=== PATIENT | female | born 1945 | race Caucasian/White ===

== ENCOUNTER 2018-01-21 16:18 | Emergency (ER) | payer OTHER, BC ==
[2018-01-21 16:34] VITALS: BP 117/92; PULSE 106; TEMP 98; BMI 30.9
[2018-01-21] MEDS ORDERED: IBUPROFEN 600 MG TABLET (FP) PO ONE ×2 (16:37→16:41)
--- NOTE | 2018-01-21 16:42 | PDOC ---
History of Present Illness <Neisha Sandy - Last Filed: 01/21/18 17:43> - General History Source: Patient, Old Records Exam Limitations: No Limitations - History of Present Illness Initial Comments: 01/21/18 16:43 The patient is a 72 year old female with a past medical history of hypertension (81 mg) and breast cancer surgery who presents to the emergency department today with left ankle pain status post mechanical fall yesterday. The patient reports that she missed a step and subsequently fell injuring her left ankle. She describes her pain as constant, concentrated in the lateral aspect of her left foot, worsened when walking, and mildly alleviated when resting and elevated. She denies any head trauma, loss of consciousness, or other injuries. She denies any cough, chest pain, or shortness of breath. <Say Xavier - Last Filed: 01/21/18 17:45> - General Chief Complaint: Injury Stated Complaint: LEFT ANKLE PAIN S/P WITNESSED FALL Time Seen by Provider: 01/21/18 16:19 Past History - Past Medical History Cancer: Yes (Left BREAST s/p XRT and chemo (completed March 2014)) COPD: No HTN: Yes (on lisinopril and bystolic) Hypercholesterolemia: Yes - Suicide/Smoking/Psychosocial Hx Smoking History: Never smoked Hx Alcohol Use: Yes (occasional wine.) Drug/Substance Use Hx: No Substance Use Type: Alcohol <Neisha Sandy - Last Filed: 01/21/18 17:43> <Say Xavier - Last Filed: 01/21/18 17:45> - Past Medical History Allergies/Adverse Reactions: Allergies Allergy/AdvReac Type Severity Reaction Status Date / Time penicillin G Allergy Intermediate whelts Verified 01/21/18 16:19 Sulfa (Sulfonamide Allergy Intermediate yeast Verified 01/21/18 16:19 Antibiotics) infection Home Medications: Ambulatory Orders Aspirin [ASA -] 81 mg PO DAILY 03/09/15 Tamoxifen Citrate 20 mg PO DAILY tablet 09/07/15 Review of Systems - Review of Systems Able to Perform ROS?: Yes Comments:: 01/21/18 16:43 GENERAL/CONSTITUTIONAL: No: fever, chills, weakness, loss of appetite. HEAD, EYES, EARS, NOSE AND THROAT: No: change in vision, ear pain, discharge, sore throat, throat swelling. CARDIOVASCULAR: No: chest pain, lightheadedness, palpitations, syncope RESPIRATORY: No: cough, shortness of breath, wheezing, hemoptysis, stridor. GASTROINTESTINAL: No: nausea, vomiting, abdominal cramping, diarrhea, rectal bleeding, constipation. GENITOURINARY: No: dysuria, hematuria, frequency, urgency, flank pain. MUSCULOSKELETAL: (+) Left ankle pain No: back pain, neck pain, muscle swelling or pain SKIN: No: lesions, pallor, rash or easy bruising. NEUROLOGIC: No: headache, vertigo, paresthesias, weakness ENDOCRINE: No: unexplained weight gain or loss HEMATOLOGIC/LYMPHATIC: No: anemia, easy bleeding, swelling nodes <Say Xavier - Last Filed: 01/21/18 17:45> *Physical Exam - Vital Signs Last Vital Signs Temp Pulse Resp BP Pulse Ox 98 F 106 H 18 117/92 97 01/21/18 16:19 01/21/18 16:19 01/21/18 16:19 01/21/18 16:19 01/21/18 16:19 <Neisha Sandy - Last Filed: 01/21/18 17:43> - Vital Signs Last Vital Signs Temp Pulse Resp BP Pulse Ox 98 F 106 H 18 117/92 97 01/21/18 16:19 01/21/18 16:19 01/21/18 16:19 01/21/18 16:19 01/21/18 16:19 - Physical Exam Comments: 01/21/18 16:44 GENERAL: The patient is in no acute distress. HEAD: Normal with no signs of trauma. EYES: PERRLA, EOMI, sclera anicteric, conjunctiva clear. ENT: Ears normal, nares patent, oropharynx clear without exudates. Moist mucous membranes. NECK: Normal range of motion, supple without lymphadenopathy, JVD, or masses. LUNGS: Breath sounds equal, clear to auscultation bilaterally. No wheezes, and no crackles. HEART:Regular rate and rhythm, normal S1 and S2 without murmur, rub or gallop. ABDOMEN: Soft, nontender, normoactive bowel sounds. No guarding, no rebound. EXTREMITIES: Normal range of motion, no edema. No clubbing or cyanosis. No erythema, or tenderness. NEUROLOGICAL: Cranial nerves II through XII grossly intact. Normal speech. No focal neurological deficits. MUSCULOSKELETAL: Back nontender to palpation, no CVA tenderness SKIN: Warm, Dry, normal turgor, no rashes or lesions noted. <Say Xavier - Last Filed: 01/21/18 17:45> ED Treatment Course - Medications Given in the ED: ED Medications Discontinued Medications Generic Name Dose Route Start Last Admin Trade Name Martir PRN Reason Stop Dose Admin Ibuprofen 600 mg 01/21/18 16:37 01/21/18 16:42 Motrin - PO 01/21/18 16:38 600 mg ONCE ONE Administration <Say Xavier - Last Filed: 01/21/18 17:45> Medical Decision Making - Medical Decision Making 01/21/18 16:38 Ms. Escalante is a 72 yo f who presents to the ER with a complaint of left ankle pain S/p mechanical fall down stair, she missed a stair last night PT states her pain has been severe since then She has difficulty bearing weight She has taken tylenol for pain On examination: No deformities. (+) swelling lateral malleolus failt bruising noted to lateral malleolus (+) tenderness of the lateral malleolus No tenderness to palpation of the DIPs, PIPs, MTPs, phalanges, metatarsals, tarsals, lateral or medial malleolus, Achilles, tibia, fibula, knee, hip bilaterally. Full range of motion of the lower extremities intact. Patient with difficulty bearing weight. Ambulating with a limp. Dorsalis pedis and posterior tibialis pulses 2+ and equal bilaterally. Capillary refill less than 2 seconds bilaterally. Neurologic: The patient is awake, alert, oriented x3. Gross motor and sensory exam is found to be intact. Sensation of distal lower extremities intact. 5/5 muscle strength of the lower extremities. DTRs, Achilles, patellar 1-2+ and equal bilaterally. Will do x ray Will give Motrin for pain Will re assess <Neisha Sandy - Last Filed: 01/21/18 17:43> - Medical Decision Making 01/21/18 17:45 Lesvia Stephens Name: ALEJANDRA ESCALANTE DEPARTMENT OF RADIOLOGY Phys: Neisha Sandy MD : [id number] Age: 72 Sex: F [facility] Acct: [id number] Loc: [address] Exam Date: 01/21/18 Status: REG [place] [id number] Unit Number: [id number] EXAM#: TYPE/EXAM: RESULT: [id number] RAD/ANKLE FOOT-LEFT* HISTORY PROVIDED: Ankle injury AP, oblique and lateral projections of the left foot and ankle reveals no evidence of fracture, dislocation or acute bone or joint abnormalities. Mild degenerative changes are present. There is soft tissue swelling seen about the lateral malleolus. A small part is identified along the plantar surface of the calcaneus. IMPRESSION: Mild degenerative arthritis with no fracture or acute bone or joint abnormalities. Reported By: Thai Mart MD 01/21/181741 Neisha Sandy Technologist: Rolando Shook Transcribed Date/Time: 01/21/181741 Hot Iron Worker: Thai Mart Printed Date/Time: By: Signed by: Thai Mart Signed on: 21-Jan-2018 17:42 <Say Xavier - Last Filed: 01/21/18 17:45> *DC/Admit/Observation/Transfer - Discharge Dispostion Decision to Admit order: No <Neisha Sandy - Last Filed: 01/21/18 17:43> - Attestations Scribe Attestion: 01/21/18 16:44 Documentation prepared by Say Xavier, acting as emergency medical dispatcher for Neisha Sandy MD. <Say Xavier - Last Filed: 01/21/18 17:45> Diagnosis at time of Disposition: Left ankle sprain Qualifiers: Encounter type: initial encounter Involved ligament of ankle: unspecified ligament Qualified Code(s): S93.402A - Sprain of unspecified ligament of left ankle, initial encounter - Discharge Dispostion Disposition: HOME Condition at time of disposition: Stable - Referrals Referrals: Alfonso Hsu MD [Staff Physician] - - Patient Instructions Printed Discharge Instructions: DI for Ankle Sprain Additional Instructions: Ms Escalante Today you were seen for ankle pain and the X-ray demonstrated no signs of fracture (broken bone), for that reason it is more likely a sprain based on your symptoms and the appearance and exam findings of your ankle. Please be sure to rest, ice and elevate it and to avoid bearing weight until feeling better. You may take the medications weve provided you as directed but please be sure to read the instructions provided by the pharmacist to make sure you take the medications correctly. You should not participate in any sports for at least 1 week or until you are feeling better. Follow up with your primary cares office, or the referral weve provided you within 24 hours to inform them of todays visit and to see if they would like to/ need to see you. If you develop any new or worsening symptoms, or any fevers that cant be controlled with Tylenol or Motrin go directly to the emergency room.
== END 2018-01-21 17:53 | disposition home or self-care (01) ==
LOC: FER 16:18
DX: S93.402A Sprain of unspecified ligament of left ankle, initial encounter (principal); W18.39XA Other fall on same level, initial encounter; Y93.89 Activity, other specified; Y92.9 Unspecified place or not applicable; I10 Essential (primary) hypertension; Z85.3 Personal history of malignant neoplasm of breast
CPT/HCPCS: 73610-TC-LT-FY; 73630-TC-LT; 99282-25

== ENCOUNTER 2021-12-27 07:31 | Inpatient (IN) | payer OTHER ==
[2021-12-27] MEDS ORDERED: LACTATED RINGERS SOLUTION 1000 ML INFUS.BAG IV ONE (08:25)
[2021-12-27 11:18] LABS: HEMATOCRIT 32.7 % (32.4-45.2); HEMOGLOBIN 10.9 GM/dL (10.7-15.3); MCH 31.1 pg (25.7-33.7); MCHC 33.2 g/dl (32.0-36.0); MEAN CELL VOLUME 93.7 fl (80-96); PLATELET COUNT 157 10^3/uL (134-434); RBC 3.49 M/mm3 (3.60-5.2); RDW 15.4 % (11.6-15.6)
[2021-12-27 11:20] LABS: WHITE BLOOD COUNT 34.2 K/mm3 (4.0-10.0)
[2021-12-27 11:25] LABS: INR 1.04 (0.83-1.09)
[2021-12-27 11:40] LABS: CHLORIDE 98 mmol/L (98-107); SODIUM 135 mmol/L (136-145)
[2021-12-27 11:42] LABS: CALCIUM 9.4 mg/dL (8.5-10.1); GLUCOSE,RANDOM 201 mg/dL (74-106)
[2021-12-27 11:43] LABS: ALBUMIN 2.8 g/dl (3.4-5.0); ANION GAP 13 MMOL/L (8-16); CO2 24 mmol/L (21-32)
[2021-12-27 11:46] LABS: CREATININE 1.1 mg/dL (0.55-1.3); SGOT/AST 33 U/L (15-37); SGPT/ALT 44 U/L (13-61)
[2021-12-27 11:47] LABS: BILIRUBIN,TOTAL 0.7 mg/dL (0.2-1)
[2021-12-27 11:49] LABS: ALK PHOS 124 U/L (45-117)
[2021-12-27 12:31] LABS: ANISOCYTOSIS 0; HELMET CELLS 0; HOWELL-JOLLY BODIES 0; MACROCYTOSIS 0; OVALOCYTE 0; ROULEAU 0; SICKELED CELLS 0; TARGET CELLS 0; TEAR DROP CELLS 0; TOXIC GRANULATION 0
[2021-12-27 15:27] LABS: URINE APPEARANCE CLEAR; URINE BILIRUBIN NEGATIVE (NEGATIVE); URINE COLOR YELLOW; URINE GLUCOSE (UA) 2+ (NEGATIVE); URINE KETONE NEGATIVE (NEGATIVE); URINE LEUK ESTERASE NEGATIVE (NEGATIVE); URINE NITRITE NEGATIVE (NEGATIVE); URINE PROTEIN TRACE (NEGATIVE); URINE UROBILINOGEN 0.2 mg/dL (0.2-1.0)
[2021-12-27] MEDS ORDERED: SODIUM CHLORIDE 1,000 ML IV SCH ×2 (16:45→16:59)
[2021-12-28 07:32] LABS: HEMATOCRIT 27.8 % (32.4-45.2); HEMOGLOBIN 9.3 GM/dL (10.7-15.3); MCH 31.6 pg (25.7-33.7); MCHC 33.4 g/dl (32.0-36.0); MEAN CELL VOLUME 94.7 fl (80-96); MEAN PLT VOLUME 10.7 fl (7.5-11.1); PLATELET COUNT 129 10^3/uL (134-434); RBC 2.94 M/mm3 (3.60-5.2); RDW 15.5 % (11.6-15.6); WHITE BLOOD COUNT 17.5 K/mm3 (4.0-10.0)
[2021-12-28 07:45] LABS: ALBUMIN 2.3 g/dl (3.4-5.0); BLOOD UREA NITROGEN 42.6 mg/dL (7-18); CALCIUM 8.3 mg/dL (8.5-10.1); MAGNESIUM 2.1 mg/dL (1.8-2.4)
[2021-12-28 07:48] LABS: CREATININE 0.7 mg/dL (0.55-1.3); PHOSPHOROUS 2.5 mg/dL (2.5-4.9)
[2021-12-28 07:49] LABS: BILIRUBIN,TOTAL 0.7 mg/dL (0.2-1); TOT PROT 4.4 g/dl (6.4-8.2)
[2021-12-28] MEDS ORDERED: ACETAMINOPHEN 325 MG TABLET (FP) PO PRN (08:21)
[2021-12-28 08:49] LABS: ANISOCYTOSIS 1+; MACROCYTOSIS 1+
[2021-12-28] MEDS: FAMOTIDINE 20 MG TABLET PO SCH (09:52)
[2021-12-28] MEDS: ENOXAPARIN NA (PORCINE) 40 MG/0.4 ML DISP.SYRIN SQ SCH (09:52)
[2021-12-28] MEDS: LYTES/YERBA SANTA 60 ML SPRAY MM SCH ×2 (12:53→18:46)
[2021-12-28] MEDS ORDERED: SODIUM CHLORIDE 1,000 ML IV SCH (16:45)
[2021-12-28] MEDS: AMINO ACIDS/PROTEIN HYDROLYS 30 ML LIQUID.PKT PO SCH (18:46)
[2021-12-28] MEDS ORDERED: LORazepam 0.5 MG TABLET PO ONE (18:58)
[2021-12-29] MEDS: LORazepam 0.5 MG TABLET PO PRN ×2 (00:25→12:09)
[2021-12-29] MEDS: LYTES/YERBA SANTA 60 ML SPRAY MM SCH ×4 (06:15→17:52)
[2021-12-29 06:51] LABS: HEMATOCRIT 29.6 % (32.4-45.2); MCH 31.5 pg (25.7-33.7); MCHC 33.7 g/dl (32.0-36.0); MEAN CELL VOLUME 93.4 fl (80-96); MEAN PLT VOLUME 10.6 fl (7.5-11.1); PLATELET COUNT 116 10^3/uL (134-434); RBC 3.17 M/mm3 (3.60-5.2); RDW 15.7 % (11.6-15.6)
[2021-12-29 07:12] LABS: BLOOD UREA NITROGEN 32.8 mg/dL (7-18); CALCIUM 8.2 mg/dL (8.5-10.1)
[2021-12-29 07:15] LABS: CREATININE 0.6 mg/dL (0.55-1.3)
[2021-12-29 08:50] LABS: ANISOCYTOSIS 1+; MACROCYTOSIS 0; PLATELET ESTIMATE DECREASED
[2021-12-29] MEDS: AMINO ACIDS/PROTEIN HYDROLYS 30 ML LIQUID.PKT PO SCH ×2 (09:08→17:42)
[2021-12-29] MEDS: ENOXAPARIN NA (PORCINE) 40 MG/0.4 ML DISP.SYRIN SQ SCH (09:19)
[2021-12-29] MEDS: FAMOTIDINE 20 MG TABLET PO SCH (09:19)
[2021-12-29] MEDS ORDERED: NAPH,MB-DB/K PH,MBDB POWDER PACKET PO ONE (09:51)
[2021-12-29] MEDS ORDERED: DIGOXIN 0.5 MG/2 ML AMPUL IVPUSH ONE ×2 (12:44→19:00)
[2021-12-29] MEDS ORDERED: LORazepam 2 MG/ML SDV VIAL IVPB ONE (14:38)
[2021-12-29] MEDS ORDERED: DRONABINOL 5 MG CAPSULE PO SCH (14:45)
[2021-12-29] MEDS: POLYETHYLENE GLYCOL (HEALTHYLAX) 3350 17 GM PACKET PO SCH (17:41)
[2021-12-29] MEDS: SODIUM CHLORIDE 1,000 ML IV SCH (17:42)
[2021-12-29] MEDS ORDERED: LORazepam 2 MG/ML SDV VIAL IVPUSH ONE (19:11)
[2021-12-29] MEDS: SENNOSIDES 8.6MG TABLET (FP) PO SCH ×2 (21:51→21:55)
[2021-12-29] MEDS ORDERED: MIRTAZAPINE 15 MG TABLET (FP) PO ONE (22:00)
[2021-12-30] MEDS: LORazepam 2 MG/ML SDV VIAL IVPUSH PRN ×2 (00:11→06:10)
[2021-12-30] MEDS: LYTES/YERBA SANTA 60 ML SPRAY MM SCH ×3 (00:41→18:35)
[2021-12-30] MEDS ORDERED: HALOPERIDOL LACTATE 5 MG/ML IM ONE (02:25)
[2021-12-30 07:23] LABS: HEMATOCRIT 28.1 % (32.4-45.2); HEMOGLOBIN 9.3 GM/dL (10.7-15.3); MCH 31.4 pg (25.7-33.7); MEAN PLT VOLUME 10.7 fl (7.5-11.1); PLATELET COUNT 104 10^3/uL (134-434); RBC 2.95 M/mm3 (3.60-5.2); RDW 15.4 % (11.6-15.6); WHITE BLOOD COUNT 11.2 K/mm3 (4.0-10.0)
[2021-12-30 07:51] LABS: ALBUMIN 2.3 g/dl (3.4-5.0); BLOOD UREA NITROGEN 25.8 mg/dL (7-18); CALCIUM 8.1 mg/dL (8.5-10.1); MAGNESIUM 2.2 mg/dL (1.8-2.4)
[2021-12-30 07:54] LABS: CREATININE 0.5 mg/dL (0.55-1.3); PHOSPHOROUS 2.3 mg/dL (2.5-4.9)
[2021-12-30 07:56] LABS: BILIRUBIN,TOTAL 0.7 mg/dL (0.2-1); TOT PROT 4.4 g/dl (6.4-8.2)
[2021-12-30 09:06] LABS: ANISOCYTOSIS 0; MACROCYTOSIS 0
[2021-12-30] MEDS ORDERED: DIGOXIN 0.25 MG TABLET PO SCH (10:00)
[2021-12-30] MEDS: ENOXAPARIN NA (PORCINE) 40 MG/0.4 ML DISP.SYRIN SQ SCH (11:30)
[2021-12-30] MEDS: FAMOTIDINE 20 MG TABLET PO SCH (11:31)
[2021-12-30] MEDS: POLYETHYLENE GLYCOL (HEALTHYLAX) 3350 17 GM PACKET PO SCH (11:31)
[2021-12-30] MEDS: DIGOXIN 0.5 MG/2 ML AMPUL IVPUSH SCH ×2 (11:31→11:41)
[2021-12-30] MEDS: AMINO ACIDS/PROTEIN HYDROLYS 30 ML LIQUID.PKT PO SCH ×2 (11:41→17:25)
[2021-12-30] MEDS ORDERED: LIDOCAINE VISCOUS 2% ORAL/TOP 15 ML UNIT-DOSE CUP MM PRN (14:27)
[2021-12-30] MEDS ORDERED: DEXAMETHASONE SOD PHOSPHATE 10 MG/1 ML VIAL IVPUSH ONE (14:45)
[2021-12-30] MEDS ORDERED: POTASSIUM PHOSPHATE 10 MM in SODIUM CHLORIDE 250 ML IVPB ONE (16:43)
[2021-12-30] MEDS: DRONABINOL 2.5 MG CAPSULE PO SCH (17:02)
[2021-12-30] MEDS: SODIUM CHLORIDE 1,000 ML IV SCH (17:23)
[2021-12-30] MEDS ORDERED: MIRTAZAPINE 15 MG TABLET (FP) PO ONE (18:00)
[2021-12-30] MEDS: DEXAMETHASONE SOD PHOSPHATE 4 MG/1 ML VIAL IVPUSH SCH ×2 (21:00→21:44)
[2021-12-30] MEDS: SENNOSIDES 8.6MG TABLET (FP) PO SCH (21:45)
[2021-12-30] MEDS ORDERED: MIRTAZAPINE 15 MG TABLET (FP) PO SCH (22:00)
[2021-12-31] MEDS: LYTES/YERBA SANTA 60 ML SPRAY MM SCH ×4 (00:58→21:19)
[2021-12-31] MEDS: ACETAMINOPHEN 1000 MG/100 ML BAG IVPB PRN ×2 (02:58→16:20)
[2021-12-31] MEDS: DEXAMETHASONE SOD PHOSPHATE 4 MG/1 ML VIAL IVPUSH SCH ×4 (03:29→21:19)
[2021-12-31] MEDS ORDERED: fentaNYL 25mcg/hr PATCH.TD72 TD SCH (03:30)
[2021-12-31 07:39] LABS: HEMOGLOBIN 9.7 GM/dL (10.7-15.3); MCH 31.8 pg (25.7-33.7); MCHC 33.4 g/dl (32.0-36.0); MEAN CELL VOLUME 95.3 fl (80-96); MEAN PLT VOLUME 10.5 fl (7.5-11.1); PLATELET COUNT 112 10^3/uL (134-434); RBC 3.04 M/mm3 (3.60-5.2); RDW 15.8 % (11.6-15.6); WHITE BLOOD COUNT 7.8 K/mm3 (4.0-10.0)
[2021-12-31 07:55] LABS: CALCIUM 8.2 mg/dL (8.5-10.1)
[2021-12-31 07:56] LABS: ALBUMIN 2.4 g/dl (3.4-5.0); BLOOD UREA NITROGEN 36.2 mg/dL (7-18); MAGNESIUM 2.2 mg/dL (1.8-2.4)
[2021-12-31 07:59] LABS: CREATININE 0.6 mg/dL (0.55-1.3); PHOSPHOROUS 3.4 mg/dL (2.5-4.9)
[2021-12-31 08:00] LABS: BILIRUBIN,TOTAL 0.8 mg/dL (0.2-1)
[2021-12-31 08:03] LABS: TOT PROT 4.7 g/dl (6.4-8.2)
[2021-12-31 09:10] LABS: ANISOCYTOSIS 1+; MACROCYTOSIS 1+; PLATELET ESTIMATE DECREASED
[2021-12-31] MEDS: DOCUSATE SODIUM 100 MG CAPSULE (FP) PO SCH (10:00)
[2021-12-31] MEDS ORDERED: dilTIAZem HCL 50 MG/10 ML - 10 ML VIAL IVPUSH SCH (10:00)
[2021-12-31] MEDS: DIGOXIN 0.5 MG/2 ML AMPUL IVPUSH SCH (10:00)
[2021-12-31] MEDS: AMINO ACIDS/PROTEIN HYDROLYS 30 ML LIQUID.PKT PO SCH ×2 (10:00→21:19)
[2021-12-31] MEDS: FAMOTIDINE 20 MG TABLET PO SCH (10:03)
[2021-12-31] MEDS: DRONABINOL 2.5 MG CAPSULE PO SCH (10:04)
[2021-12-31] MEDS: POLYETHYLENE GLYCOL (HEALTHYLAX) 3350 17 GM PACKET PO SCH (10:10)
[2021-12-31] MEDS ORDERED: LORazepam 2 MG/ML SDV VIAL IVPUSH ONE (10:20)
[2021-12-31] MEDS: HALOPERIDOL LACTATE 5 MG/ML IM PRN ×2 (14:08→21:17)
[2021-12-31] MEDS: SODIUM CHLORIDE 1,000 ML IV SCH (19:00)
[2021-12-31] MEDS: SENNOSIDES 8.6MG TABLET (FP) PO SCH (21:19)
[2022-01-01] MEDS: LYTES/YERBA SANTA 60 ML SPRAY MM SCH ×4 (02:06→17:49)
[2022-01-01] MEDS: DEXAMETHASONE SOD PHOSPHATE 4 MG/1 ML VIAL IVPUSH SCH ×4 (02:06→21:07)
[2022-01-01 07:27] LABS: BASO % 0.2 % (0-2.0); HEMATOCRIT 27.6 % (32.4-45.2); HEMOGLOBIN 9.1 GM/dL (10.7-15.3); LYMPH % 3.5 % (8-40); MCH 31.3 pg (25.7-33.7); MEAN PLT VOLUME 10.8 fl (7.5-11.1); MONO % 3.6 % (3.8-10.2); NEUT % 92.7 % (42.8-82.8); PLATELET COUNT 111 10^3/uL (134-434); RBC 2.91 M/mm3 (3.60-5.2); RDW 15.8 % (11.6-15.6); WHITE BLOOD COUNT 15.6 K/mm3 (4.0-10.0)
[2022-01-01 07:55] LABS: CALCIUM 8.5 mg/dL (8.5-10.1)
[2022-01-01 07:56] LABS: ALBUMIN 2.2 g/dl (3.4-5.0); BLOOD UREA NITROGEN 48.1 mg/dL (7-18)
[2022-01-01 07:59] LABS: CREATININE 0.6 mg/dL (0.55-1.3)
[2022-01-01 08:01] LABS: BILIRUBIN,TOTAL 0.6 mg/dL (0.2-1); TOT PROT 4.5 g/dl (6.4-8.2)
[2022-01-01] MEDS: METOPROLOL TARTRATE 5 MG/5 ML VIAL IVPUSH PRN (08:06)
[2022-01-01] MEDS ORDERED: morphine SULFATE 4 MG/ML VIAL IVPUSH PRN ×2 (08:34→08:45)
[2022-01-01] MEDS ORDERED: morphine SULFATE 4 MG/ML VIAL ONE (08:42)
[2022-01-01] MEDS: AMINO ACIDS/PROTEIN HYDROLYS 30 ML LIQUID.PKT PO SCH ×2 (08:47→17:49)
[2022-01-01 09:37] LABS: ANISOCYTOSIS 1+; MACROCYTOSIS 0; PLATELET ESTIMATE DECREASED
[2022-01-01] MEDS: FAMOTIDINE 20 MG TABLET PO SCH (10:21)
[2022-01-01] MEDS: DRONABINOL 2.5 MG CAPSULE PO SCH (10:23)
[2022-01-01] MEDS: DIGOXIN 0.5 MG/2 ML AMPUL IVPUSH SCH (10:23)
[2022-01-01] MEDS: DOCUSATE SODIUM 100 MG CAPSULE (FP) PO SCH (10:25)
[2022-01-01] MEDS: POLYETHYLENE GLYCOL (HEALTHYLAX) 3350 17 GM PACKET PO SCH (10:51)
[2022-01-01] MEDS: LORazepam 2 MG/ML SDV VIAL IVPUSH PRN (10:52)
[2022-01-01] MEDS: AMINO ACIDS 4.25%/D5W 1,000 ML IV SCH ×2 (11:10→21:06)
[2022-01-01] MEDS: SODIUM CHLORIDE 1,000 ML IV SCH ×2 (12:04→16:30)
[2022-01-01] MEDS: morphine SULFATE 4 MG/ML VIAL IVPUSH PRN ×3 (12:06→21:29)
[2022-01-01] MEDS: ACETAMINOPHEN 1000 MG/100 ML BAG IVPB PRN ×2 (12:53→21:08)
[2022-01-01] MEDS: LIDOCAINE VISCOUS 2% ORAL/TOP 15 ML UNIT-DOSE CUP MM SCH ×2 (13:00→17:51)
[2022-01-01] MEDS: SENNOSIDES 8.6MG TABLET (FP) PO SCH (21:07)
[2022-01-02] MEDS: LIDOCAINE VISCOUS 2% ORAL/TOP 15 ML UNIT-DOSE CUP MM SCH ×3 (00:33→13:24)
[2022-01-02] MEDS: LYTES/YERBA SANTA 60 ML SPRAY MM SCH ×3 (00:34→16:52)
[2022-01-02] MEDS: morphine SULFATE 4 MG/ML VIAL IVPUSH PRN ×2 (01:38→06:42)
[2022-01-02] MEDS: METOPROLOL TARTRATE 5 MG/5 ML VIAL IVPUSH PRN (02:43)
[2022-01-02] MEDS: DEXAMETHASONE SOD PHOSPHATE 4 MG/1 ML VIAL IVPUSH SCH ×3 (02:47→18:41)
[2022-01-02] MEDS: LORazepam 2 MG/ML SDV VIAL IVPUSH PRN ×3 (07:45→18:44)
[2022-01-02] MEDS: HALOPERIDOL LACTATE 5 MG/ML IM PRN (08:28)
[2022-01-02] MEDS: DIGOXIN 0.5 MG/2 ML AMPUL IVPUSH SCH (10:24)
[2022-01-02] MEDS: AMINO ACIDS/PROTEIN HYDROLYS 30 ML LIQUID.PKT PO SCH (10:32)
[2022-01-02] MEDS: DOCUSATE SODIUM 100 MG CAPSULE (FP) PO SCH (10:33)
[2022-01-02] MEDS: DRONABINOL 2.5 MG CAPSULE PO SCH (10:33)
[2022-01-02] MEDS: POLYETHYLENE GLYCOL (HEALTHYLAX) 3350 17 GM PACKET PO SCH (10:33)
[2022-01-02] MEDS: FAMOTIDINE 20 MG TABLET PO SCH (10:33)
[2022-01-02 10:50] VITALS: BP 157/89; TEMP 98.6
[2022-01-02] MEDS: AMINO ACIDS 4.25%/D5W 1,000 ML IV SCH (11:56)
[2022-01-02] MEDS: MORPHINE SULFATE/0.9% NACL/PF 100 MG/100 ML BAG IVPB SCH (13:58)
[2022-01-02] MEDS ORDERED: morphine SULFATE 4 MG/ML VIAL IVPUSH ONE (14:58)
[2022-01-02] MEDS ORDERED: HALOPERIDOL LACTATE 5 MG/ML IM PRN (14:59)
[2022-01-03] MEDS: LIDOCAINE VISCOUS 2% ORAL/TOP 15 ML UNIT-DOSE CUP MM SCH (00:10)
[2022-01-03 02:49] VITALS: PULSE 135
[2022-01-03] MEDS: MORPHINE SULFATE/0.9% NACL/PF 100 MG/100 ML BAG IVPB SCH (03:22)
[2022-01-03] MEDS ORDERED: FENTANYL PATCH WASTE TD PRN (03:29)
[2022-01-03] MEDS: LYTES/YERBA SANTA 60 ML SPRAY MM SCH ×2 (06:51)
== END 2022-01-03 07:13 | disposition expired | DRG 54 ==
LOC: JER 07:31 → JERBED 15:10 → J2W 18:30
PROVIDERS: ADMIT Internal Medicine
DX: C79.31 Secondary malignant neoplasm of brain (principal); J96.00 Acute respiratory failure, unspecified whether with hypoxia or hypercapnia; G93.41 Metabolic encephalopathy; C78.7 Secondary malignant neoplasm of liver and intrahepatic bile duct; C79.51 Secondary malignant neoplasm of bone; I48.92 Unspecified atrial flutter; I24.8 Other forms of acute ischemic heart disease; I95.1 Orthostatic hypotension; I10 Essential (primary) hypertension; I48.91 Unspecified atrial fibrillation; D72.829 Elevated white blood cell count, unspecified; T45.1X5A Adverse effect of antineoplastic and immunosuppressive drugs, initial encounter; Y92.89 Other specified places as the place of occurrence of the external cause; D69.6 Thrombocytopenia, unspecified; C50.912 Malignant neoplasm of unspecified site of left female breast; R62.7 Adult failure to thrive
CPT/HCPCS: 36415; 70450-TC; 70551-TC; 71045-TC-FY; 72125-TC; 72170-TC-FY; 80048; 80053; 81003; 82550; 83735; 84100; 84439; 84443; 84484; 85025; 85610; 85730; 86850; 86900; 86901; 87040; 87086; 93005; 93010; 93306-TC; 93971-TC; 97161-GP; 99285-25; C9803-CS; J1100; U0003; U0005